=== PATIENT | female | born 1965 | race Caucasian/White ===

== ENCOUNTER 2016-10-16 17:17 | Emergency (ER) | payer MEDICARE, MEDICAID ==
[2016-10-16 17:40] VITALS: BP 156/91; PULSE 103; TEMP 98.6; BMI 25.5
[2016-10-16] MEDS ORDERED: OXYCODONE HCL 5 MG TABLET PO ONE (18:12)
[2016-10-16] MEDS ORDERED: IBUPROFEN 600 MG TAB PO ONE (18:12)
--- NOTE | 2016-10-16 18:13 | EDPRACDOC ---
- General Information Chief Complaint: Shoulder Pain Stated Complaint: PAIN ALL OVER Time Seen by Provider: 10/16/16 18:09 Mode of Arrival: Car Home Medications: Home Medications CITALOPRAM (anti-depressant) [Celexa] 40 mg PO DAILY 10/23/12 Clonazepam [Klonopin] 1 mg PO BID PRN 10/23/12 Esomeprazole Mag Trihydrate [Nexium] 40 mg PO DAILY PRN 06/12/15 Hydromorphone HCl [Hydromorphone ER] 16 mg PO DAILY 07/26/15 Ropinirole HCl [Requip] 0.25 - 1 mg PO HS PRN 07/26/15 Oxycodone HCl [Oxycodone Immediate Release] 15 mg PO Q6H PRN 02/25/16 Oxycodone Immediate Release [Oxycodone Immediate Release (OxyIR)] 5 mg PO Q6H # 6 tab 02/25/16 Meloxicam [Mobic] 7.5 mg PO BID #20 tab 10/16/16 Tramadol HCl [Ultram] 50 mg PO Q4-6H #10 tablet 10/16/16 Allergies/Adverse Reactions: Allergies Allergy/AdvReac Type Severity Reaction Status Date / Time metoclopramide HCl Allergy Severe TARDIVE Verified 02/25/16 15:19 [From Reglan] DYSKINESIA` codeine Allergy Hives* Verified 02/25/16 15:19 - History of Present Illness Onset: CHRONIC. HPI: PT PRESENTS TODAY STATING THAT SHE HAS PAIN ALL OVER. PT STATES THAT SHE " USED TO BE A PAIN CLINIC PT BUT HAD TO QUIT THE CLINIC TO TAKE CARE OF HER FATHER, BUT HE RECENTLY". STATES CHRONIC NECK, BACK SHOULDER, CYSTIC PAIN. NO NEW SYMPTOMS. 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 precipitated her chronic int. nausea and vomiting) Cardiac History: Reports: Hypertension, Hypercholesterolemia GI/ History: Reports: Kidney Stones, Gastroesophageal Reflux Musculoskeletal History: Reports: Arthritis, Osteoarthritis Psychological History: Reports: Depression, Anxiety Systemic History: Reports: Anemia. Denies: Cancer Surgical History: Reports: Hysterectomy - Family Medical History Denies: Hypertension, Diabetes, Cancer, Stroke, Cardiac Disorders - Social Medical History Smoking Status: Heavy tobacco smoker (5 or more cigarettes/day or daily pipe/ cigar) EDM Review of Systems - Review of Systems ROS Negative Except as Marked: Yes All systems reviewed and were negative except as marked Constitutional: No Symptoms Reported Respiratory: No Symptoms Reported Cardiovascular: No Symptoms Reported Gastrointestinal: No Symptoms Reported Neurological: No Symptoms Reported Musculoskeletal: Back, Shoulder Integumentary: No Symptoms Reported - Physical Exam Constitutional: Alert (Awake), No apparent distress Oriented to: Time, Person, Place Last recorded Vital Signs: Last Vital Signs Temp 98.6 F 10/16/16 17:35 Pulse 103 10/16/16 17:35 Resp 20 10/16/16 17:35 BP 156/91 10/16/16 17:35 Pulse Ox 95 10/16/16 17:35 Oxygen Pulse Oxygen Saturation 95 O2 Device Room Air Oxygen Flow Rate Fraction of Inspired Oxygen ( FIO2) - HEENT Head: Normal Eye Exam: Normal Neck: Midline, Paraspinal Tenderness - Respiratory/Cardiovascular Respiratory: Normal - CTA Cardiovascular: Normal - GI Palpation: Normal Tenderness: Non tender - Musculoskeletal Back: Normal Extremities: Normal - Integumentary Skin: Normal Lymphatics: Normal - Neurologic Cerebellar: Normal Mood Description: Normal Thought: Coherent Perception: Normal Decision Time to Discharge: 18:11 - Departure Disposition: Home Condition: Good Final Diagnosis: Muscle pain Instructions: RICE Therapy (ED) Education/Counseling Given To: Patient Education/Counseling Given Regarding: Diagnosis, Treatment, Follow Up Referrals: Pierre Morillo MD [Primary Care Provider] - One Week Prescriptions: New Meloxicam [Mobic] 7.5 mg PO BID #20 tab Tramadol HCl [Ultram] 50 mg PO Q4-6H #10 tablet No Action Clonazepam [Klonopin] 1 mg PO BID PRN PRN Reason: Anxiety CITALOPRAM (anti-depressant) [Celexa] 40 mg PO DAILY Esomeprazole Mag Trihydrate [Nexium] 40 mg PO DAILY PRN PRN Reason: Acid Reflux Hydromorphone HCl [Hydromorphone ER] 16 mg PO DAILY Ropinirole HCl [Requip] 0.25 - 1 mg PO HS PRN PRN Reason: RESTLESS LEG SYNDROME Oxycodone HCl [Oxycodone Immediate Release] 15 mg PO Q6H PRN PRN Reason: Pain Oxycodone Immediate Release [Oxycodone Immediate Release (OxyIR)] 5 mg PO Q6H #6 tab Additional Instructions: HEATING PADS TO ACHY MUSCLES. IF SYMPTOMS PERSIST, FOLLOW UP WITH PCP.
== END 2016-10-16 18:21 | disposition home or self-care (01) ==
LOC: EDMC 17:17
DX: M60.9 Myositis, unspecified (principal)
CPT/HCPCS: 99282; A9270; J3490